=== PATIENT | male | born 1990 | race American Indian/Alaskan Native ===

== ENCOUNTER 2020-07-25 14:18 | Emergency (ER) | payer SELFPAY ==
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
--- NOTE | 2020-07-25 15:33 | XRay Report ---
BILATERAL RIBS, PA CHEST RADIOGRAPH HISTORY: Provided clinical history of rib and chest pain COMPARISON: None. TECHNIQUE: 2 views of the ribs were obtained. Single view of the chest was also obtained. FINDINGS: Bilateral Ribs: Bones: No fracture or dislocation. Joint spaces: Maintained. Soft tissues: No significant abnormality. Chest: Cardiomediastinal silhouette: Normal cardiac size. Normal mediastinal contours. Lungs: Normal expansion. Normal lung aeration. No pleural effusions. No pneumothorax. Pulmonary vascularity: Normal. Additional findings: Mild-moderate dextroconvex lower thoracic scoliosis. IMPRESSION: 1. No acute findings. Signer Name: Cristian Arboleda MD Signed: 07/25/2020 3:28 PM Workstation Name: [id number]
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
[2020-07-25] MEDS ORDERED: NAPROXEN 500 MG TAB PO NR (17:06)
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
[2020-07-25 18:02] VITALS: BP 140/83
== END 2020-07-25 18:01 | disposition left against medical advice (07) ==
LOC: ED 14:18
DX: M54.9 Dorsalgia, unspecified (principal); Z53.21 Procedure and treatment not carried out due to patient leaving prior to being seen by health care provider
CPT/HCPCS: 71111; 72070